=== PATIENT | male | born 1965 | race Asian ===

== ENCOUNTER 2016-07-10 12:57 | Day surgery (SDC) | payer OTHER ==
[~2016-07-10] VITALS: Ht 165.1 cm; Wt 61.0 kg
[~2016-07-10 12:57] MED LIST: CALC166. PO; MULT-412 PO; PLAN450C PO; VITAMIN D PO
[2016-07-10] MEDS ORDERED: BUPIVACAINE/PF 0.25% ONE (13:23)
[2016-07-10] MEDS ORDERED: LACTATED RINGERS 1,000 ML IV SCH (13:45)
[2016-07-10] MEDS ORDERED: IBUP200C PO (13:55)
[2016-07-10] MEDS ORDERED: ACET-1600 PO (13:55)
[2016-07-10 13:57] VITALS: BP 126/85
[2016-07-10] MEDS ORDERED: FENTANYL PF 250 MCG/5ML ONE (14:54)
[2016-07-10] MEDS ORDERED: ACETAMINOPHEN 325 MG TABLET PO PRN (15:30)
[2016-07-10] MEDS ORDERED: MEPERIDINE/PF 25MG/0.5ML IVPush PRN (15:30)
[2016-07-10] MEDS ORDERED: ONDANSETRON 2MG/ML, 2ML IVPush PRN (15:30)
[2016-07-10] MEDS ORDERED: FENTANYL PF 100 MCG/2ML IV PRN (15:30)
[2016-07-10] MEDS ORDERED: HYDROmorphone 1 MG/ML, 1ML IV PRN (15:30)
[2016-07-10] MEDS ORDERED: OXYcodone 5 MG/5 ML ORAL.SOL UDC PO PRN (15:30)
[2016-07-10] MEDS ORDERED: MIDAZOLAM 1 MG/ML, 2ML IV PRN (15:30)
[2016-07-10] MEDS ORDERED: DEXAMETHASONE 4 MG/ML, 1ML ONE (15:34)
[2016-07-10] MEDS ORDERED: PROPOFOL 10 MG/ML, 20ML ONE (15:34)
[2016-07-10] MEDS ORDERED: MIDAZOLAM 1 MG/ML, 2ML ONE (15:34)
[2016-07-10] MEDS ORDERED: SUCCINYLCHOLINE 20 MG/ML, 10ML ONE (15:34)
[2016-07-10] MEDS ORDERED: ONDANSETRON 2MG/ML, 2ML ONE (15:34)
[2016-07-10] MEDS ORDERED: CEFAZOLIN 1,000 MG ONE (15:34)
[2016-07-10] MEDS ORDERED: NEOSTIGMINE 1 MG/ML, 10ML ONE (15:34)
[2016-07-10] MEDS ORDERED: ROCURONIUM 10 MG/ML ONE (15:34)
[2016-07-10] MEDS ORDERED: GLYCOPYRROLATE 0.2MG/1ML ONE (15:34)
[2016-07-10] MEDS ORDERED: BUPIVACAINE/PF 0.25% INFIL ONE (15:59)
[2016-07-10] MEDS ORDERED: OXYcodone 5 MG/5 ML ORAL.SOL UDC ONE (16:53)
[2016-07-10] MEDS ORDERED: FENTANYL PF 100 MCG/2ML ONE (17:14)
[2016-07-10] MEDS ORDERED: SCOPOLAMINE PATCH, 1.5MG PATCH.TD72 TD ONE ×2 (19:31→20:00)
== END 2016-07-10 17:45 ==
LOC: OUT 12:57
PROVIDERS: ATTEND Urology
DX: C62.91 Malignant neoplasm of right testis, unspecified whether descended or undescended (principal)
CPT/HCPCS: 54522; 81003; 87086; 88309; J0330; J0690; J1100; J2250; J2405; J2704; J2710; J3010; J3490; J7120